=== PATIENT | female | born 1940 | race Caucasian/White ===

== ENCOUNTER → 2017-08-16 | Outpatient (CLI) | payer MEDICARE | END | disposition home or self-care (01) | LOC: CVU 07:25 | PROVIDERS: ATTEND Internal Medicine Cardiovascular Disease | DX: I34.1 Nonrheumatic mitral (valve) prolapse (principal); I65.22 Occlusion and stenosis of left carotid artery | CPT/HCPCS: 93880 ==

== ENCOUNTER → 2018-09-12 | Outpatient (CLI) | payer MEDICARE | END | disposition home or self-care (01) | LOC: CFH 07:59 | PROVIDERS: ATTEND Internal Medicine Cardiovascular Disease | DX: I10 Essential (primary) hypertension (principal) | CPT/HCPCS: 78452; 93017; A9502 ==

== ENCOUNTER → 2019-02-12 | Outpatient (CLI) | payer MEDICARE ==
[~2019-02-12] VITALS: Ht 175.3 cm; Wt 60.2 kg
[~2019-02-12] MED LIST: ASCO500T8 PO; ASPI-515 PO; ATOR-2 PO; CALC-545 PO; DENOSUMAB 60 MG/ML SQ ONE; LYSI500T PO; METO50TA82 PO; MULT-658 PO; OMEP-110 PO
[2019-02-12 15:00] VITALS: BP 133/78
== END | disposition home or self-care (01) ==
LOC: INFUSION 11:53
PROVIDERS: ATTEND Family Medicine
DX: M81.0 Age-related osteoporosis without current pathological fracture (principal); I10 Essential (primary) hypertension; E78.5 Hyperlipidemia, unspecified; Z85.3 Personal history of malignant neoplasm of breast; Z87.891 Personal history of nicotine dependence
CPT/HCPCS: 96372; J0897

== ENCOUNTER 2019-07-16 09:11 | Emergency (ER) | payer MEDICARE ==
[~2019-07-16] VITALS: Ht 175.3 cm; Wt 58.6 kg
[~2019-07-16 09:11] MED LIST changes: -DENOSUMAB 60 MG/ML SQ ONE; -LYSI500T PO; +LYSI500T8 PO
[2019-07-16] MEDS ORDERED: AMLO10TA8 PO (09:49)
[2019-07-16] MEDS ORDERED: SUCR1TAB33 PO (09:49)
[2019-07-16] MEDS ORDERED: PROLEA (09:49)
[2019-07-16] MEDS ORDERED: ROSU10TA2 PO (09:49)
--- NOTE | 2019-07-16 09:49 | NUR ---
PT HERE WITH C/O EPIGASTRIC, STERNAL, AND SUBSTERNAL CHEST PAIN. 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 PT ALSO HAS HX GERD. PT STATES BURNING SENSATION WHEN LAYING DOWN, GOES AWAY WITH SITTING UP. PT STATES MOSTLY AT NIGHT. PT ALSO STATES NO SOB, NAUSEA, VOMITTING, DIZZINESS, C/P WITH AMBULATION OR ACTIVITY. PT AAO X 4, AND, ROOM AIR, CALL LIGHT WITHIN REACH. PT DRESSED IN GOWN AND ATTACHED TO MONITOR. AT BEDSIDE. MD IN ROOM FOR EXAM. MED REC COMPLETED. LAB AT BEDSIDE FOR LAB DRAW.
[2019-07-16] MEDS ORDERED: MAALOX/HYOSCYAMINE/LIDOCAINE 45 ML BTL ONE (09:52)
--- NOTE | 2019-07-16 09:54 | NUR ---
PT MEDICATED PER ORDER.
[2019-07-16] MEDS ORDERED: MAALOX/HYOSCYAMINE/LIDOCAINE 45 ML BTL PO ONE (10:00)
[2019-07-16 10:15] LABS: ALANINE AMINOTRANSFERASE 29 U/L (12-78); ALBUMIN 3.9 g/dL (3.4-5.0); ANION GAP 2 mmol/L (5-15); CALCIUM 8.6 mg/dL (8.5-10.1); CHLORIDE 104 mmol/L (98-107); CREATININE 0.69 mg/dL (0.55-1.02)
[2019-07-16 10:16] LABS: BASOPHILS # (AUTO) 0.02 x10^3/uL (0-0.1); BASOPHILS % (AUTO) 1 % (0-1); EOSINOPHILS # (AUTO) 0.06 x10^3/uL (0-0.4); EOSINOPHILS % (AUTO) 2 % (1-7); LYMPHOCYTES # (AUTO) 0.77 x10^3/uL (1-3.4); LYMPHOCYTES % (AUTO) 22 % (22-44); MD NO; MEAN CORPUSCULAR HEMOGLOBIN 32.1 pg (27.0-34.8); MEAN CORPUSCULAR HGB CONC 33.2 g/dL (32.4-35.8); MEAN CORPUSCULAR VOLUME 96.7 fL (80-100); MEAN PLATELET VOLUME 8.9 fL (7.4-10.4); MONOCYTES # (AUTO) 0.18 x10^3/uL (0.2-0.8); MONOCYTES % (AUTO) 5 % (2-9); NEUTROPHILS # (AUTO) 2.46 x10^3/uL (1.8-6.8); NEUTROPHILS % (AUTO) 70 % (42-75); PLATELET COUNT 165 x10^3/uL (130-400); RED BLOOD COUNT 4.06 x10^6/uL (3.82-5.3); RED CELL DISTRIBUTION WIDTH 12.7 % (9.6-15.2)
[2019-07-16 10:18] LABS: ALKALINE PHOSPHATASE 39 U/L (45-117); BILIRUBIN,TOTAL 0.7 mg/dL (0.2-1.0); TOTAL PROTEIN 6.7 g/dL (6.4-8.2); TROPONIN I < 0.015 ng/mL (0.000-0.045)
--- NOTE | 2019-07-16 10:46 | NUR ---
PT STATES PAIN IS BETTER, MD AWARE AND CHART UP FOR RECHECK.
--- NOTE | 2019-07-16 10:48 | NUR ---
MD TO BEDSIDE TO DISCUSS RESULTS OF XRAY, PLAN FOR CT OF CHEST WITH CONTRAST.
--- NOTE | 2019-07-16 11:48 | NUR ---
PT TO CT.
--- NOTE | 2019-07-16 12:05 | NUR ---
PT BACK FROM CT.
[2019-07-16] MEDS ORDERED: OMNIPAQUE 350 MG/ML, 75ML BOTTLE ONE (12:10)
--- NOTE | 2019-07-16 12:24 | NUR ---
PT ASSISTED TO RESTROOM WITH STEADY GAIT. PT DENIES PAIN, NAUSEA, DIZZINESS.
--- NOTE | 2019-07-16 12:41 | NUR ---
ALL RESULTS BACK AT THIS TIME, CHART UP FOR RECHECK.
[2019-07-16 13:29] VITALS: BP 138/77
--- NOTE | 2019-07-16 13:29 | NUR ---
MD AT BEDSIDE TO DISCUSS TEST RESULTS AND PLAN OF CARE.
--- NOTE | 2019-07-16 13:52 | NUR ---
Patient/Caregiver given discharge instructions and they have confirmed that they understand the instructions. Patient ambulatory with steady gait. PIV REMOVED TIP INTACT.
[2019-08-12] MEDS ORDERED: ESOM20CA PO (13:58)
[2019-08-12] MEDS ORDERED: PANT40TA5 PO (13:58)
[2019-08-12] MEDS ORDERED: D-MA50PO PO (13:58)
== END 2019-07-16 13:56 | disposition home or self-care (01) ==
LOC: ED 10:37
DX: K29.00 Acute gastritis without bleeding (principal); I10 Essential (primary) hypertension; K21.9 Gastro-esophageal reflux disease without esophagitis; E78.00 Pure hypercholesterolemia, unspecified; Z95.2 Presence of prosthetic heart valve
CPT/HCPCS: 36415; 71045; 71260; 80053; 83690; 84484; 85025; 93005; 99284; Q9967

== ENCOUNTER → 2019-09-26 | Outpatient (CLI) | payer MEDICARE ==
[~2019-09-26] MED LIST changes: +AMLO10TA8 PO; +D-MA50PO PO; +ESOM20CA PO; +PANT40TA5 PO; +PROLEA; +ROSU10TA2 PO; +SUCR1TAB33 PO
== END | disposition home or self-care (01) ==
LOC: CFH 13:12
PROVIDERS: ATTEND Internal Medicine Cardiovascular Disease
DX: I08.1 Rheumatic disorders of both mitral and tricuspid valves (principal); I10 Essential (primary) hypertension
CPT/HCPCS: 93306